=== PATIENT | female | born 1970 | race Caucasian/White ===

== ENCOUNTER → 2016-11-21 | Outpatient (CLI) | payer BC ==
--- NOTE | 2016-11-21 12:39 | MR ---
EXAMINATION TYPE: MR shoulder LT wo con DATE OF EXAM: 11/21/2016 7:30 AM COMPARISON: NONE HISTORY: Left Shoulder Pain TECHNIQUE: Multiplanar, multisequence imaging of the left shoulder is performed without contrast on a 3 Soo magnet.. FINDINGS: There is no evidence of an os acromiale. There is minimal hypertrophic change in the left A C joint. The acromion is neutral. There is no evidence for rotator cuff tear. There is no significant tendinosis. The cartilaginous glenoid labrum appears intact. The biceps tendon is normally situated within the biceps tendon groove and inserts normally upon the biceps anchor. No osseous lesion is seen. IMPRESSION: 1. NO EVIDENCE FOR ROTATOR CUFF TEAR. 2. MINIMAL DEGENERATIVE CHANGE, LEFT AC JOINT.
== END | disposition home or self-care (01) ==
LOC: RADMRIMAIN 06:20
PROVIDERS: ATTEND Orthopaedic Surgery
DX: M19.012 Primary osteoarthritis, left shoulder (principal)

== ENCOUNTER → 2019-11-20 | Outpatient (CLI) | payer BC ==
[2019-11-20 10:50] LABS: Anisocytosis Slight; Basophils % (A) 1 %; Eosinophils # (A) 0.1 k/uL (0-0.7); Eosinophils % (A) 2 %; HCT 28.8 % (34.0-46.0); HGB 8.9 gm/dL (11.4-16.0); Hypochromasia Marked; Lymphocytes # (A) 1.5 k/uL (1.0-4.8); Lymphocytes % (A) 25 %; MCH 25.6 pg (25.0-35.0); MCV 82.6 fL (80.0-100.0); Mean Platelet Volume 8.5; Monocytes # (A) 0.3 k/uL (0-1.0); Monocytes % (A) 5 %; Neutrophils % (A) 64 %; Platelet Count 219 k/uL (150-450); Poikilocytosis Moderate; RBC 3.48 m/uL (3.80-5.40); RDW 16.4 % (11.5-15.5); WBC 6.2 k/uL (3.8-10.6)
== END | disposition home or self-care (01) ==
LOC: LABPAT 10:00
PROVIDERS: ATTEND Obstetrics & Gynecology Obstetrics
DX: Z01.818 Encounter for other preprocedural examination (principal); I10 Essential (primary) hypertension; N90.7 Vulvar cyst; N85.02 Endometrial intraepithelial neoplasia [EIN]; Z01.812 Encounter for preprocedural laboratory examination
CPT/HCPCS: 36415; 85025; 93005

== ENCOUNTER 2019-11-29 07:24 | Day surgery (SDC) | payer BC ==
[2019-11-24 11:14] VITALS: BMI 34.7
[~2019-11-29 07:24] MED LIST: DEXAMETHASONE SOD PHOSPHATE 10 MG/ML 1 ML VIAL IV ONE; HYDROmorphone 0.5 MG/0.5 ML SYRINGE IVP PRN; LACTATED RINGERS 1,000 ML IV SCH; LIDOCAINE 1% 20 ML VIAL (10MG/ML) FOR IV START INTRADERMA PRN; MIDAZOLAM 2 MG/2 ML VIAL IV PRN; Pre Op ABX Message 1 EACH MISC MISCELLANE ONE
[2019-11-29] MEDS ORDERED: DEXAMETHASONE SOD PHOSPHATE 10 MG/ML 1 ML VIAL IV ONE (08:02)
[2019-11-29] MEDS ORDERED: ONDANSETRON 4 MG/2 ML VIAL IVP ONE ×2 (08:03→10:28)
[2019-11-29] MEDS ORDERED: BACITRACIN OINT 1 EACH PACKET TOPICAL ONE (10:05)
[2019-11-29] MEDS ORDERED: SILVER NITRATE APPLICATOR 1 EACH STICK..EA. TOPICAL ONE (10:05)
[2019-11-29 10:24] VITALS: TEMP 97.3
--- NOTE | 2019-11-29 10:31 | P.OP ---
Date of Procedure: 11/29/19 Preoperative Diagnosis: Heavy menstrual bleeding, complex hyperplasia with atypia Postoperative Diagnosis: Same, plus left labial cyst Procedure(s) Performed: Hysteroscopy, dilation and curettage, drainage of labial cyst Anesthesia: MAC Surgeon: Karrie Mott Estimated Blood Loss (ml): 5 IV fluids (ml): 400 Urine output (ml): 200 Pathology: other (Endometrial curettings, culture tube from labial cyst) Condition: stable Disposition: PACU Indications for Procedure: This 49-year-old female presented to the office with complaints of heavy menstrual bleeding. Patient underwent endometrial biopsy which was consistent with a diagnosis of complex hyperplasia with atypia. Patient presents for D&C for definitive diagnosis Operative Findings: Thickened endometrium with some calcifications noted, left labial cyst drained with thick chocolate like discharge Description of Procedure: Patient was seen in the preoperative area and procedure was reviewed. All questions were answered patient stated understanding and was taken back to the operating suite. Patient underwent general anesthesia with the anesthesia department, she was then prepped and draped in normal sterile fashion in the dorsal lithotomy position a catheter was then used to drain the bladder of clear yellow urine. A weighted speculum was placed the posterior vaginal vault the anterior lip of the cervix is visualized and grasped with a single-tooth tenaculum. The endocervical canal was then dilated. The hysteroscope was placed through the cervix and toward the endometrial cavity thickened endometr ium was noted and stated above in findings. Multiple pictures were taken and the hysteroscope was removed. Sharp curettage was then performed until gritty texture was noted. This was then sent to pathology for analysis. The single- tooth tenaculum was taken off of the anterior lip of the cervix and hemostasis was appreciated. The left labial cyst was noted a 18 blade scalpel was then used to make a small incision and copious amounts of thick chocolate like substance was removed a culture was obtained. Silver nitrate was used to obtain hemostasis from the incision site. Triple antibiotic ointment was then placed over the incision. Next All counts were correct 2 patient tolerated procedure well and was taken the recovery room awake in stable condition.
[2019-11-29] MEDS ORDERED: HYDROmorphone 1 MG/ML 1 ML SYRINGE IVP ONE ×2 (10:34→10:50)
[2019-11-29] MEDS ORDERED: LACTATED RINGERS 1,000 ML IV ONE (10:38)
[2019-11-29 11:05] VITALS: RESP 16
[2019-11-29 11:25] VITALS: BP 125/76; PULSE 87
== END 2019-11-29 11:44 | disposition home or self-care (01) ==
LOC: OR 07:24
PROVIDERS: ATTEND Obstetrics & Gynecology Obstetrics
DX: N85.02 Endometrial intraepithelial neoplasia [EIN] (principal); N90.7 Vulvar cyst; I10 Essential (primary) hypertension; L40.9 Psoriasis, unspecified; D64.9 Anemia, unspecified; F17.210 Nicotine dependence, cigarettes, uncomplicated; Z79.899 Other long term (current) drug therapy; Z80.49 Family history of malignant neoplasm of other genital organs
CPT/HCPCS: 81025; 87070; 87205; 87075; 58558; 10060; J1100; J2405; J1170; 88305

== ENCOUNTER → 2020-03-08 | Outpatient (CLI) | payer BC ==
[2020-03-08 14:08] LABS: Amorphous Sediment,Urine Occasional /hpf; Appearance,Urine Cloudy (Clear); Bacteria,Urine Rare /hpf; Bilirubin,Urine Negative (Negative); Blood,Urine Moderate (Negative); Color,Urine Light Yellow; Glucose,Urine (UA) Negative (Negative); Ketones,Urine Negative (Negative); Leukocyte Esterase,Urine Small (Negative); Mucus,Urine Rare /hpf; Nitrite,Urine Positive (Negative); Protein,Urine Negative (Negative); RBC,Urine <1 /hpf (0-5); Specific Gravity,Urine 1.007 (1.001-1.035); Squamous Epithelial Cell,Urine 2 /hpf (0-4); Urobilinogen,Urine <2.0 mg/dL (<2.0); WBC,Urine 2 /hpf (0-5)
[2020-03-08 14:13] LABS: African American GFR (CKD) >90 (>60 ml/min/1.73 sqM); Anion Gap 12 mmol/L; Blood Urea Nitrogen 10 mg/dL (7-17); Carbon Dioxide 25 mmol/L (22-30); Chloride 98 mmol/L (98-107); Glucose 184 mg/dL (74-99); Non-African American GFR(CKD) 86 (>60 ml/min/1.73 sqM); Potassium 3.8 mmol/L (3.5-5.1); Sodium 135 mmol/L (137-145)
[2020-03-08 15:00] LABS: Anisocytosis Slight; Basophils % (A) 0 %; Eosinophils # (A) 0.1 k/uL (0-0.7); Eosinophils % (A) 2 %; HCT 39.7 % (34.0-46.0); HGB 12.7 gm/dL (11.4-16.0); Hypochromasia Slight; Lymphocytes # (A) 1.6 k/uL (1.0-4.8); Lymphocytes % (A) 28 %; MCH 26.1 pg (25.0-35.0); MCHC 31.9 g/dL (31.0-37.0); MCV 81.9 fL (80.0-100.0); Mean Platelet Volume 8.2; Monocytes # (A) 0.2 k/uL (0-1.0); Monocytes % (A) 4 %; Neutrophils # (A) 3.7 k/uL (1.3-7.7); Neutrophils % (A) 65 %; Platelet Count 199 k/uL (150-450); RBC 4.84 m/uL (3.80-5.40); RDW 17.1 % (11.5-15.5); WBC 5.8 k/uL (3.8-10.6)
== END | disposition home or self-care (01) ==
LOC: LABPAT 13:17
PROVIDERS: ATTEND Obstetrics & Gynecology Obstetrics
DX: Z01.818 Encounter for other preprocedural examination (principal); N85.00 Endometrial hyperplasia, unspecified; D64.9 Anemia, unspecified; N92.1 Excessive and frequent menstruation with irregular cycle
CPT/HCPCS: 80051; 81001; 82565; 82947; 84520; 85025

== ENCOUNTER → 2020-03-10 | Outpatient (CLI) | payer BC, MEDICARE | END | disposition home or self-care (01) | LOC: LABWHC1 08:12 | PROVIDERS: ATTEND Obstetrics & Gynecology Obstetrics | DX: Z11.59 Encounter for screening for other viral diseases (principal) ==

== ENCOUNTER 2020-03-14 06:12 | Day surgery (SDC) | payer BC, MEDICARE ==
--- NOTE | 2020-03-10 14:20 | HP ---
HISTORY AND PHYSICAL HISTORY OF PRESENT ILLNESS: This is a 49-year-old female that presented with complaints of menorrhagia, dysmenorrhea. The patient states her menstrual cycles are slightly irregular. The patient noted her last Pap test was done approximately 1 year ago and it was normal in nature. She denied any breast symptoms or concerns, she denied any hot flashes or hot flushes, night sweats. PAST MEDICAL HISTORY: Significant for hypertension. PAST SURGICAL HISTORY: Significant for one prior . MEDICATIONS: She is on lisinopril and Otezla. FAMILY MEDICAL HISTORY: She has a mother with history of cervical cancer. REPRODUCTIVE HISTORY: She is a 3, para 2-1-0-3 with 2 prior vaginal deliveries and one for hypertension that was delivered at 24 weeks. SOCIAL HISTORY: She is a half pack a day smoker. She is and works for [employer] in the area. REVIEW OF SYSTEMS: She denies headaches, fevers, chills, nausea, vomiting, chest pain, shortness of breath. She does admit to menorrhagia and dysmenorrhea. Denies urinary urgency or frequency. She denies anxiety and depression. Vital signs are noted to be stable. PHYSICAL EXAM: In general, this is a well-nourished, well-developed female in no acute distress, she has a noted normal respirations with no signs of labored breathing. Her heart has regular rate and rhythm, her breasts are normal in appearance with no skin changes or discharge apparent on exam. On abdominal exam, her abdomen is noted to be nontender to palpation with no masses or lesions. Genitourinary are external genitalia is noted to be normal for age. Her vagina is normal with no discharge. Normal pink rugae are noted. Her bladder is nontender to palpation and no prolapse is noted. Her cervix is noted to be without lesion and nontender. Her uterus is noted to be normal in size, mobile, midline. Endometrial biopsy was performed on her initial annual exam revealing complex hyperplasia without atypia, subsequently A, B, and C was done that showed simple and complex hyperplasia in just 1 focus of atypia. IMPRESSION: Endometrial hyperplasia. PLAN: Robotic assisted hysterectomy with bilateral salpingo-oophorectomy as discussed with the patient, given her endometrial hyperplasia. Surgery is reviewed. Risks are discussed with patient including, but not limited to infection, bleeding, damage to bladder, bowel, ureteric or other pelvic structures. Patient states understanding the need for surgery and wishes to proceed. Diagnostic cystoscopy will be performed in addition, at the time of the surgery. MMODL / IJN: [id number] /
[2020-03-10 15:37] VITALS: BMI 30.9
[~2020-03-14 06:12] MED LIST changes: +ACETAMINOPHEN IV (For NPO) 1,000 MG in EMPTY BAG 1 BAG IVPB ONE; -LACTATED RINGERS 1,000 ML IV SCH; +LIDOCAINE 1% (10MG/ML) FOR IV START INTRADERMA PRN; -LIDOCAINE 1% 20 ML VIAL (10MG/ML) FOR IV START INTRADERMA PRN; +ONDANSETRON 4 MG/2 ML VIAL IVP ONE; -Pre Op ABX Message 1 EACH MISC MISCELLANE ONE
[2020-03-14] MEDS: LACTATED RINGERS 1,000 ML IV SCH ×2 (06:51→12:09)
[2020-03-14] MEDS ORDERED: SCOPOLAMINE 1.5MG/72HR PATCH TRANSDERM ONE (06:53)
[2020-03-14] MEDS ORDERED: NEOSTIGMINE 1 MG/ML 10 ML VIAL ONE (07:33)
[2020-03-14] MEDS ORDERED: PHENYLEPHRINE-0.9% NACL SYG 1 MG/10 ML SYRINGE ONE (07:33)
[2020-03-14] MEDS ORDERED: ROCURONIUM BROMIDE 10 MG/ML 5 ML VIAL IV ONE (07:33)
[2020-03-14] MEDS ORDERED: SUCCINYLCHOLINE CHLORIDE 100 MG/5 ML SYR IV ONE (07:33)
[2020-03-14] MEDS ORDERED: fentaNYL (PF) 50 MCG/ML 2 ML AMP ONE (07:33)
[2020-03-14] MEDS ORDERED: PROPOFOL 10 MG/ML 20 ML VIAL IV ONE (07:33)
[2020-03-14] MEDS ORDERED: LIDOCAINE 1% INJ 10MG/ML (20 ML MDV) ONE (07:33)
[2020-03-14] MEDS ORDERED: MIDAZOLAM 2 MG/2 ML VIAL ONE (07:33)
[2020-03-14] MEDS ORDERED: GLYCOPYRROLATE 0.2 MG/ML 2 ML VIAL ONE (07:33)
[2020-03-14] MEDS ORDERED: BUPIVACAINE (PF) 0.25% 30 ML VIAL SQ ONE (08:04)
[2020-03-14] MEDS ORDERED: LACTATED RINGERS 1,000 ML IV ONE (08:41)
[2020-03-14] MEDS ORDERED: SIMETHICONE 80 MG CHEWABLE PO PRN (09:52)
[2020-03-14] MEDS ORDERED: diphenhydrAMINE 50 MG/ML 1 ML VIAL IVP PRN (09:52)
[2020-03-14] MEDS ORDERED: Acetaminophen-Codeine 300-30mg TAB PO PRN ×2 (09:52)
--- NOTE | 2020-03-14 10:02 | P.OP ---
Date of Procedure: 03/14/20 Preoperative Diagnosis: And Megan hyperplasia with a focus of complex with atypia Postoperative Diagnosis: Same Procedure(s) Performed: Robotic cyst vaginal hysterotomy, bilateral salpingo-vitrectomy, diagnostic cystoscopy Surgeon: Karrie Mott It Generalist #1: Rishi Murphy Estimated Blood Loss (ml): 15 IV fluids (ml): 1,400 Urine output (ml): 250 Pathology: other (Uterus cervix fallopian tubes, bilateral ovaries) Condition: stable Disposition: PACU Indications for Procedure: Patient was seen in the office for post menopausal bleeding, endometrial biopsy was performed complex hyperplasia was noted. Patient was subsequently taken for a hysteroscopy dilation and curettage which noted hyperplasia with a focus of complex with atypia. Patient elected definitive therapy with myself. Patient was counseled on the procedure, risks were reviewed in detail including but not limited to infection, bleeding, damage to bladder, bowel, ureteric injury. Patient does have history of 1 therefore she stated understanding of risks of bladder injury given the prior . All questions were answered to the patient's satisfaction. Operative Findings: Globular mobile uterus was noted bilateral ovaries appeared grossly normal. Description of Procedure: Patient was seen in the preoperative area and informed consent was obtained once again. Patient was taken back to the operating suite where general anesthesia was obtained without difficulty by the anesthesia department. She was then prepped and draped in normal sterile fashion in the dorsal lithotomy position. A Michael catheter was placed under sterile technique. A weighted speculum was placed in the posterior vaginal vault, the anterior lip of the cervix is visualized and grasped with a single-tooth tenaculum. The endocervical canal was then dilated and a [employer] care uterine manipulator was placed. Cervical cap was then placed snugly against the cervix and secured. All instrument removed from the patient's vaginal vault at that time. Attention was then turned the patient's abdomen where proximal weight 2 finger breaths above the umbilicus a small skin incision is made. Through this incision the Veress needles placed. Once the Veress needle was deemed to be in the appropriate position with a drop of CO2 pressure with insufflation of CO2 gas CO2 insufflation was allowed to occur. Approximately 3 L of gas or used to obtain pneumoperitoneum. At this point an 8 mm trocar and sleeve were placed through the skin incision and toward the pneumoperitoneum under direct visualization. At this time the trocar was removed sheath remaining in place. The above-noted findings are visualized. The additional port sites are then placed at 10 cm lateral and 37 m inferior midline port these are 8 mm ports and placed under direct visualization. At this time the additional left upper quadrant port site was placed the cyst wall millimeter port placed under direct visualization. The robot was undocked in usual fashion. The operative arms are placed in the right operative arm the monopolar scissors, in the left operative arm the bipolar forceps is placed. Attention was then turned to the left infundibulopelvic ligament which was grasped coagulated distally and proximally and divided. This continued through the broad and toward the round which was coagulated distally and proximal plane divided. Bladder flap from the left was then created using sharp and blunt dissection. The ascending branch the uterine artery was visualized coagulated distally and proximally and divided. Hemostasis was appreciated. Attention was then turned to the patient's right infundibulopelvic ligament which was visualized coagulated distally and proximal plane divided. This continued through the broad and toward the round which is coagulated and transected. Hemostasis was appreciated. The bladder flap was then created using sharp and blunt dissection from the right. The bladder was noted to be free from the operating field. The ascending branch the uterine artery was then visualized, coagulated and transected. Hemostasis was appreciated. At this time the only remaining attachment was a vaginal attachment therefore a colpotomy incision was made and circumference of fashion. The uterus cervix bilateral fallopian tubes and ovaries were delivered through the vaginal opening. The pelvis was then copiously irrigated. The vaginal cuff then closed with [id number] sutures of 0 Vicryl. Partially 5 sutures were used to obtain closure. Small amount of FloSeal was placed over the cuff as the bladder flap was noted to be slightly bleeding. At this time all inserts removed from the patient's abdomen and the skin incisions were closed with 4-0 Vicryl in a septic fashion. Suture strips and sterile dressings were applied as needed. Attention then turned to the patient's Michael catheter which was removed without difficulty. A cystoscopy was then performed. The cystoscope was placed through the urethra and toward the bladder bladder bubbles noted a complete inspection of the bladder noted intact bladder mucosa, bilateral ureteral orifices were noted to be spilling clear y ellow urine. At this point the cystoscopy fluid was removed and the Michael catheter was replaced. All counts are noted to be correct at the end of the procedure. Patient tolerated procedure well and was taken the recovery room awake in stable condition.
[2020-03-14] MEDS ORDERED: IBUPROFEN IV 800 MG in SODIUM CHLORIDE 0.9% 250 ML IV ONE (11:58)
--- NOTE | 2020-03-14 18:50 | P.PN ---
Subjective Progress Note Date: 03/14/20 Principal diagnosis: POD 0 RAVH BSO DC This 49-year-old female presented to the hospital this morning for planned robotic cyst vaginal hysterotomy with bilateral sopping over ectomy, diagnostic cystoscopy. Procedure was completed without difficulty, for further details please see the operative report. Patient underwent procedure secondary to endometrial hyperplasia with a focus of complex hyperplasia and atypia. Patient is ambulating and voiding without difficulty. Her Michael was removed around 1700 and she has voided twice of clear yellow urine. She states her pain is well- controlled. She denies vaginal bleeding. Objective - Vital Signs Vital signs: Vital Signs Temp 98.3 F 03/14/20 13:43 Pulse 70 03/14/20 13:43 Resp 18 03/14/20 13:43 BP 111/72 03/14/20 13:43 Pulse Ox 96 03/14/20 11:09 Intake & Output 03/13/20 03/14/20 03/14/20 18:59 06:59 18:59 Intake Total 1450 Output Total 815 Balance 635 Weight 91.5 kg 91.5 kg Intake: IV 1450 Output: Urine 800 Uretheral (Michael) 350 Estimated Blood Loss 15 Other: # Voids 1 - Constitutional General appearance: Present: cooperative, no acute distress - EENT Eyes: Present: EOMI ENT: Present: NA/AT - Respiratory Respiratory: bilateral: CTA - Cardiovascular Rhythm: regular - Gastrointestinal Gastrointestinal Comment(s): Incisions are be clean dry and intact with bandages intact General gastrointestinal: Present: soft Assessment and Plan (1) Endometrial hyperplasia with atypia Current Visit: Yes Status: Acute Code(s): N85.02 - ENDOMETRIAL INTRAEPITHELIAL NEOPLASIA [EIN] SNOMED Code(s): 110236960 Plan: This pleasant 49-year-old status post robotic cyst vaginal hysterotomy with bilateral spill for ectomy, diagnostic cystoscopy is doing well on this postop day #0. She is able to ambulate to the bathroom without difficulty, she has had 2 spontaneous void status post Michael removal. She states her pain is well- controlled. She denies concerns. I do anticipate discharge home in the AM.
[2020-03-14] MEDS: SENNOSIDES-DOCUSATE SODIUM 1 EACH TAB PO SCH (19:19)
[2020-03-14] MEDS: IBUPROFEN 600 MG TAB PO PRN (19:19)
[2020-03-15 06:05] LABS: Anisocytosis Slight; Basophils % (A) 0 %; Eosinophils # (A) 0.1 k/uL (0-0.7); Eosinophils % (A) 1 %; HCT 33.8 % (34.0-46.0); HGB 11.1 gm/dL (11.4-16.0); Lymphocytes # (A) 1.3 k/uL (1.0-4.8); Lymphocytes % (A) 17 %; MCH 26.4 pg (25.0-35.0); MCHC 32.7 g/dL (31.0-37.0); MCV 80.7 fL (80.0-100.0); Mean Platelet Volume 8.1; Microcytosis Slight; Monocytes # (A) 0.2 k/uL (0-1.0); Monocytes % (A) 3 %; Neutrophils # (A) 6.1 k/uL (1.3-7.7); Neutrophils % (A) 78 %; Platelet Count 172 k/uL (150-450); RBC 4.19 m/uL (3.80-5.40); RDW 17.6 % (11.5-15.5); WBC 7.8 k/uL (3.8-10.6)
[2020-03-15] MEDS: SENNOSIDES-DOCUSATE SODIUM 1 EACH TAB PO SCH (07:20)
[2020-03-15] MEDS: IBUPROFEN 600 MG TAB PO PRN (07:20)
[2020-03-15 08:11] VITALS: BP 112/86; PULSE 67; RESP 16; TEMP 97.8
--- NOTE | 2020-03-15 08:26 | P.DS ---
Providers Date of admission: 03/14/2020 Expected date of discharge: 03/15/20 Attending physician: Karrie Mott Primary care physician: Zeb Gilmore - Discharge Diagnosis(es) (1) Endometrial hyperplasia with atypia Current Visit: Yes Status: Acute (2) Status post hysterectomy with oophorectomy Current Visit: Yes Status: Acute Hospital Course: This pleasant 49-year-old female presented yesterday 03/14 for scheduled robotic- assisted vaginal hysterectomy with bilateral salpingo-for ectomy, diagnostic cystoscopy. Patient underwent procedure secondary to postmenopausal bleeding were subsequently led to a diagnosis of hyperplasia with a focus of complex and atypia. The procedure went as planned, for further details on the surgery please see the operative report. Patient's postoperative course has been uneventful. On this postop day 1 she is ambulating and voiding without dif ficulty. She is tolerating a regular diet without nausea or vomiting. She states her pain is well-controlled. She denies concerns and wishes discharge home. Patient Condition at Discharge: Good Plan - Discharge Summary Discharge Rx Participant: No New Discharge Prescriptions: No Action Lisinopril [Zestril] 10 mg PO QAM Apremilast [Otezla] 20 mg PO BID Varenicline Tartrate [Chantix Continuing Pack] 1 mg PO BID Discharge Medication List Apremilast [Otezla] 20 mg PO BID 11/24/19 [History] Lisinopril [Zestril] 10 mg PO QAM 11/24/19 [History] Varenicline Tartrate [Chantix Continuing Pack] 1 mg PO BID 03/10/20 [History] Follow up Appointment(s)/Referral(s): Karrie Mott DO [Doctor of Osteopathic Medicine] - 2 Weeks Patient Instructions/Handouts: *Surgery [facility] - Scopalamine Patch Instructions, Laparoscopic Hysterectomy (DC), Laparoscopic Hysterectomy (GEN) Discharge Disposition: HOME SELF-CARE
== END 2020-03-15 08:46 | disposition home or self-care (01) ==
LOC: OR 06:12 → 4FBP 09:41 → OR 03-15 08:46
PROVIDERS: ATTEND Obstetrics & Gynecology Obstetrics
DX: N80.0 Endometriosis of uterus (principal); N83.202 Unspecified ovarian cyst, left side; N83.311 Acquired atrophy of right ovary; N95.0 Postmenopausal bleeding; I10 Essential (primary) hypertension; E66.9 Obesity, unspecified; D64.9 Anemia, unspecified; F17.210 Nicotine dependence, cigarettes, uncomplicated; Z79.899 Other long term (current) drug therapy; Z98.891 History of uterine scar from previous surgery; Z88.5 Allergy status to narcotic agent; Z68.34 Body mass index [BMI] 34.0-34.9, adult; Z80.49 Family history of malignant neoplasm of other genital organs
CPT/HCPCS: 81025; 85025; 88307; 58571; C1762; J1100; J0690; J2405; J0131; J1741; J1170; 36415; 86850; 86900; 86901

== ENCOUNTER → 2024-02-10 | Outpatient (CLI) | payer BC ==
--- NOTE | 2024-02-10 10:33 | US ---
EXAMINATION TYPE: US liver DATE OF EXAM: 02/10/2024 COMPARISON: NONE CLINICAL INDICATION: Female, 53 years old with history of R74.8 ABNORMAL LEVELS SERUM ENZYMES; elevat ed labs, some abd and left shoulder pain, issues with digestion TECHNIQUE: Multiple sonographic images of the right upper quadrant are obtained. FINDINGS: EXAM MEASUREMENTS: Liver Length: 18.1 cm Gallbladder Wall: 0.3 cm CBD: 0.4 cm Right Kidney: 10.0 x 3.4 x 4.1 cm Pancreas: portions seen appear wnl Liver: Increased echotexture. Gallbladder: 2.4 x 1.8 centimeter gallstone with posterior acoustic shadowing. Evidence for sonographic Jacob's sign: no CBD: wnl Right Kidney: wnl IMPRESSION: 1. No evidence for acute process. 2. Hepatic steatosis. 3. Cholelithiasis.
== END | disposition home or self-care (01) ==
LOC: RADUSWWP 07:34
PROVIDERS: ATTEND Family Medicine
DX: K80.20 Calculus of gallbladder without cholecystitis without obstruction (principal); K76.0 Fatty (change of) liver, not elsewhere classified; M25.512 Pain in left shoulder; R74.8 Abnormal levels of other serum enzymes; R79.89 Other specified abnormal findings of blood chemistry
CPT/HCPCS: 76705

== ENCOUNTER → 2024-04-02 | Outpatient (CLI) | payer BC ==
--- NOTE | 2024-04-02 14:18 | NM ---
EXAMINATION TYPE: NM hepatobiliary w EF DATE OF EXAM: 04/02/2024 1:44 PM COMPARISON: Ultrasound 02/10/2024 CLINICAL INDICATION:Female, 53 years old with history of K80.20 CALCULUS OF GALLBLADDER; TECHNIQUE: The patient was given 5.1 mCi of Technetium 99m-Mebrofenin as a radiotracer and multiple scintigraphic images were obtained of the abdomen. Gallbladder function was also assessed after the a dministration of ensure drink and additional scintigraphic images were obtained of the abdomen. A reg ion of interest was drawn over the gallbladder and a timing activity curve was generated. The gallbla dder ejection fraction was calculated. FINDINGS: Normal uptake of radiotracer was identified within the liver with excretion into the hepatic and comm on biliary ducts within 6 minutes. There was normal progressive washout of the liver over the course of the study. Radiotracer uptake within the gallbladder at 6 minutes as well as small bowel activity was identified at 20 minutes. Maximum calculated gallbladder ejection fraction is: 82% at 30 minutes (Normal gallbladder ejection fraction is > 35%) IMPRESSION: 1. Normal hepatobiliary scan. 2. Normal ejection fraction.
== END | disposition home or self-care (01) ==
LOC: RADNMMAIN 08:34
PROVIDERS: ATTEND Family Medicine
DX: K80.20 Calculus of gallbladder without cholecystitis without obstruction (principal)
CPT/HCPCS: 78226; A9537